=== PATIENT | male | born 1950 | race American Indian/Alaskan Native ===

== ENCOUNTER 2019-11-01 19:56 | Emergency (ER) | payer MEDICARE ==
[2019-11-01 20:08] VITALS: BP 155/87
[2019-11-01] MEDS ORDERED: HYDROcodone/ACETAMINOPHEN 5-325 MG TAB PO ONE (21:51)
[2019-11-01] MEDS ORDERED: TETANUS,DIPH,PERTUSS(ACELL) VACCINE 0.5 ML SYRINGE IM ONE (21:51)
[2019-11-01] MEDS ORDERED: RABIES IMMUNE GLOBULIN P/F 300 UNIT/ML INJ 5 ML IM ONE (21:51)
[2019-11-01] MEDS ORDERED: RABIES VACCINE, HUMAN DIPLOID/PF 2.5 UNIT/ML VIAL IM ONE (21:51)
--- NOTE | 2019-11-01 22:51 | Emergency Department Report ---
ED Animal Bite HPI - General Chief Complaint: Animal Bite Stated Complaint: DOG BITE,HAVENT HAD RABIES SHOT Time Seen by Provider: 11/01/19 21:40 Source: patient Mode of arrival: Ambulatory Limitations: No Limitations - History of Present Illness Initial Comments: Patient is a 69-year-old male presents emergency room with complaints of a dog bite to the right calf that occurred prior to arrival. He states that he was bit by his neighbors dog. He states that he does not know what type of dog it was that it appears to be a month. He is ambulatory but states he does feel some discomfort where the dog bit. He states initially there was bleeding but it has resolved. He denies any numbness or weakness. He states that the dog was not vaccinated. He has a past medical history of diabetes and hypertension. He is unsure of his last tetanus immunization. He denies bites anywhere else except for the right calf. - Related Data Previous Rx's Medication Instructions Recorded Last Taken Type Aspirin [Aspirin BABY CHEW TAB] 81 mg PO QDAY #30 tab.chew 11/30/15 Unknown Rx Insulin Glargine [Lantus VIAL] 35 units SUB-Q QHS #10 ml 11/30/15 Unknown Rx Insulin Regular, Human [HumuLIN R] 0 units SUB-Q ACHS #10 ml 11/30/15 Unknown Rx Syringe and Needle,Insulin,1Ml 1 each MC TID #90 disp.syrin 11/30/15 Unknown Rx [Insulin Syringe/Needle 1 ML] levETIRAcetam [Keppra TAB] 500 mg PO BID #60 tablet 11/30/15 Unknown Rx lisinopriL [Zestril TAB] 5 mg PO QDAY #30 tablet 11/30/15 Unknown Rx Amoxicillin/Potassium Clav 1 each PO BID 10 Days #20 tablet 11/01/19 Unknown Rx [Augmentin 875-125 Tablet] traMADoL [Ultram 50 MG tab] 50 mg PO Q6HR PRN #7 tablet 11/01/19 Unknown Rx Allergies Allergy/AdvReac Type Severity Reaction Status Date / Time No Known Allergies Allergy Verified 11/26/15 05:02 ED Review of Systems ROS: Stated complaint: DOG BITE,HAVENT HAD RABIES SHOT Other details as noted in HPI Comment: All other systems reviewed and negative ED Past Medical Hx - Past Medical History Hx Hypertension: Yes Hx Diabetes: Yes Hx Liver Disease: Yes (cirrhosis, hep C) Hx Seizures: Yes (new onset) Hx Kidney Stones: Yes Additional medical history: Hep C - Surgical History Past Surgical History?: No - Social History Smoking Status: Never Smoker Substance Use Type: None - Medications Home Medications: Home Medications Medication Instructions Recorded Confirmed Last Taken Type Aspirin [Aspirin BABY CHEW TAB] 81 mg PO QDAY #30 tab.chew 11/30/15 Unknown Rx Insulin Glargine [Lantus VIAL] 35 units SUB-Q QHS #10 ml 11/30/15 Unknown Rx Insulin Regular, Human [HumuLIN R] 0 units SUB-Q ACHS #10 ml 11/30/15 Unknown Rx Syringe and Needle,Insulin,1Ml 1 each MC TID #90 disp.syrin 11/30/15 Unknown Rx [Insulin Syringe/Needle 1 ML] levETIRAcetam [Keppra TAB] 500 mg PO BID #60 tablet 11/30/15 Unknown Rx lisinopriL [Zestril TAB] 5 mg PO QDAY #30 tablet 11/30/15 Unknown Rx Amoxicillin/Potassium Clav 1 each PO BID 10 Days #20 tablet 11/01/19 Unknown Rx [Augmentin 875-125 Tablet] traMADoL [Ultram 50 MG tab] 50 mg PO Q6HR PRN #7 tablet 11/01/19 Unknown Rx ED Physical Exam - General Limitations: No Limitations General appearance: alert, in no apparent distress - Head Head exam: Present: atraumatic, normocephalic - Eye Eye exam: Present: normal appearance - ENT ENT exam: Present: mucous membranes moist - Extremities Exam Extremities exam: Present: other (2 cm very superficial laceration present to the right calf, appears to only involve the dermis and epidermis, no subcutaneous fat involvement, no muscle/tendon involvement, no obvious foreign body visualized, no active bleeding, does not need repair, FROM of the RLE, achiles tendon is intact, neurovascularly intact) - Neurological Exam Neurological exam: Present: alert, oriented X3 - Psychiatric Psychiatric exam: Present: normal affect, normal mood - Skin Skin exam: Present: warm, dry ED Course Vital Signs 11/01/19 11/01/19 11/01/19 20:05 22:06 23:00 Temperature 97.9 F Pulse Rate 98 H 80 Respiratory 18 16 18 Rate Blood Pressure 155/87 O2 Sat by Pulse 97 100 Oximetry - Reevaluation(s) Reevaluation #1: 11/02/19 01:24 Patient is a 69-year-old male presents emergency room with complaints of a dog bite to the right calf that occurred prior to arrival. He states that he was bit by his neighbors dog. He states that he does not know what type of dog it was that it appears to be a month. He is ambulatory but states he does feel some discomfort where the dog bit. He states initially there was bleeding but it has resolved. He denies any numbness or weakness. He states that the dog was not vaccinated. He has a past medical history of diabetes and hypertension. He is unsure of his last tetanus immunization. He denies bites anywhere else except for the right calf. Vitals are stable. on exam: 2 cm very superficial laceration present to the right calf, appears to only involve the dermis and epidermis, no subcutaneous fat involvement, no muscle/tendon involvement, no obvious foreign body visualized, no active bleeding, does not need repair, FROM of the RLE, achiles tendon is intact, neurovascularly intact. Patient given tetanus immunization and rabies vaccine. Due to unvaccinated status of dog, patient given rabies immunoglobulin based on weight. Half of the immunoglobulin was placed around the wound and the other half was placed in the right thigh. Patient tolerated well, no complications. Wound irrigated with saline and thoroughly scrubbed with Betadine. Sterile dressing applied by nurse. Patient given prescription for Augmentin and tramadol as needed for pain. Advised patient Please take medication as prescribed. Do not drive or operate heavy machinery while taking pain medication. Please follow-up with a primary care doctor for reexamination. You need to follow-up with a health department to receive the rest of the rabies vaccine series. You will need to have the vaccine repeated on day 3 (11/04/2019), day 7 (11/08/2019), day 14 (11/15/2019). Return to emergency room for any new or worsening symptoms. Critical care attestation.: If time is entered above; I have spent that time in minutes in the direct care of this critically ill patient, excluding procedure time. ED Disposition Clinical Impression: Dog bite of right calf Qualifiers: Encounter type: initial encounter Qualified Code(s): S81.851A - Open bite, right lower leg, initial encounter Disposition: - TO HOME OR SELFCARE Is pt being admited?: No Does the pt Need Aspirin: No Condition: Stable Instructions: Rabies Vaccine (Injection), Rabies Immune Globulin (Injection), Animal Bite (ED) Additional Instructions: Please take medication as prescribed. Do not drive or operate heavy machinery while taking pain medication. Please follow-up with a primary care doctor for reexamination. You need to follow-up with a health department to receive the rest of the rabies vaccine series. You will need to have the vaccine repeated on day 3 (11/04/2019), day 7 (11/08/2019), day 14 (11/15/2019). Return to emergency room for any new or worsening symptoms. Prescriptions: Amoxicillin/Potassium Clav [Augmentin 875-125 Tablet] 1 each PO BID 10 Days #20 tablet traMADoL [Ultram 50 MG tab] 50 mg PO Q6HR PRN #7 tablet PRN Reason: Pain , Severe (7-10) Referrals: STERLING MCINTOSH MD [Primary Care Provider] - 2-3 Days [facility] [Outside] - 2-3 Days Time of Disposition: 22:48 Print Language: TAJIK
== END 2019-11-01 23:00 | disposition home or self-care (01) ==
LOC: ED 19:56
DX: S81.851A Open bite, right lower leg, initial encounter (principal); I10 Essential (primary) hypertension; E11.9 Type 2 diabetes mellitus without complications; R56.9 Unspecified convulsions; Z79.2 Long term (current) use of antibiotics; Z79.4 Long term (current) use of insulin; Z79.899 Other long term (current) drug therapy; W54.0XXA Bitten by dog, initial encounter; Y93.89 Activity, other specified; Y92.89 Other specified places as the place of occurrence of the external cause; Y99.8 Other external cause status
CPT/HCPCS: 90375; 90471; 90472; 90675; 90715; 96372; 99283